=== PATIENT | female | born 1990 | race Caucasian/White ===

== ENCOUNTER 2022-02-22 15:00 | Emergency (ER) | payer BC ==
[2022-02-22] MEDS ORDERED: methylPREDNISolone Sodium Succinate 40 MG/1 ML SDV IVPUSH ONE (15:12)
[2022-02-22] MEDS ORDERED: diphenhydrAMINE 50 MG/ML SDV IVPUSH ONE (15:13)
[2022-02-22] MEDS ORDERED: Famotidine 20 MG/2 ML SDV IVPUSH ONE (15:13)
== END 2022-02-22 15:44 | disposition home or self-care (01) ==
LOC: LB.ED 15:00
DX: T78.40XA Allergy, unspecified, initial encounter (principal)
CPT/HCPCS: 96374; 96375; 99283-25; J1200; J2920; J3490